=== PATIENT | female | born 1960 | race Hispanic/Latino ===

== ENCOUNTER 2020-06-22 12:28 | Emergency (ER) | payer OTHER ==
--- NOTE | 2020-06-22 15:40 | ER ---
Nurse's Notes [facility] Name: Blanca Awna Age: 59 yrs Sex: Female : 1960 Arrival Date: 06/22/2020 Time: 12:36 Bed Waiting Private MD: Diagnosis: Presentation: 06/22 13:00 Chief complaint: Patient states: 1. Chronic low back pain. 2. Abdominal pain with N/V ll1 for 4 days. No fever. Coronavirus screen: Client denies travel out of the [place] in the last 14 days. At this time, the client does not indicate any symptoms associated with coronavirus-19. Ebola Screen: Patient denies travel to an Ebola-affected area in the 21 days before illness onset. Initial Sepsis Screen: Does the patient meet any 2 criteria? HR > 90 bpm. No. Patient's initial sepsis screen is negative. Does the patient have a suspected source of infection? Yes: Acute abdominal pain. Risk Assessment: Do you want to hurt yourself or someone else? Patient reports no desire to harm self or others. Onset of symptoms was June 18, 2020. 13:00 Method Of Arrival: Ambulatory ll1 13:00 Acuity: MARLI 3 ll1 Historical: - Allergies: 13:02 No Known Allergies; ll1 - PMHx: 13:02 Diabetes - IDDM; Hyperlipidemia; Hypertension; ll1 - PSHx: 13:02 ; ll1 - Immunization history:: Flu vaccine is up to date. - Social history:: Smoking status: Patient reports the use of cigarette tobacco products, smokes one-half pack cigarettes per day. Vital Signs: 13:00 BP 127 / 82; Pulse 111; Resp 17; Pulse Ox 99% ; Weight 52.16 kg; Height 5 ft. 2 in. ll1 (157.48 cm); Pain 10/10; 13:03 Temp 97.9; ll1 13:00 Body Mass Index 21.03 (52.16 kg, 157.48 cm) ll1 ED Course: 12:36 Patient arrived in ED. ds1 13:01 Triage completed. ll1 13:02 Arm band placed on. ll1 Administered Medications: No medications were administered Outcome: 15:40 Patient left the ED. ll1 Signatures: Maggie Pardo ds1 Cliff, Lynsay, RN RN ll1
[2020-06-22 15:44] VITALS: BP 127/82; O2SAT 99
[2020-06-22 15:45] VITALS: TEMP 97.9
== END 2020-06-22 15:40 | disposition left against medical advice (07) ==
LOC: ER 12:28
DX: Z02.9 Encounter for administrative examinations, unspecified (principal)
CPT/HCPCS: 99281

== ENCOUNTER 2020-06-27 08:08 | Emergency (ER) | payer OTHER ==
[2020-06-27 08:53] LABS: Absolute Lymphocytes (CBC) 1.8 K/uL (0.7-4.9); Basophils % 0.5 % (0-1.3); Hematocrit 35.7 % (36.0-45.0); RBC Red Blood Cell Count 4.24 M/uL (3.86-4.86)
[2020-06-27] MEDS ORDERED: MEPERIDINE HCL 25 MG/ML SYR ONE (09:06)
[2020-06-27 09:09] LABS: ALT/SGPT 19 U/L (12-78); AST/SGOT 12 U/L (15-37); Albumin 3.2 g/dL (3.4-5.0); Alkaline Phosphatase 140 U/L (45-117); BUN Blood Urea Nitrogen 21 mg/dL (7-18); Bicarbonate 30 mmol/L (21-32); Bilirubin Direct < 0.1 mg/dL (0-0.2); Bilirubin Total 0.2 mg/dL (0.2-1.0); Glucose Level 216 mg/dL (74-106); Lipase 148 U/L (73-393); Potassium 4.2 mmol/L (3.5-5.1); Protein, Total 7.3 g/dL (6.4-8.2); Sodium Level 138 mmol/L (136-145)
[2020-06-27 09:10] LABS: Urine RBC NONE SEEN /HPF (NONE SEEN)
[2020-06-27 09:11] LABS: Urine Bacteria <20 /HPF (<20)
[2020-06-27 09:14] LABS: Urine Blood NEGATIVE (Negative); Urine Protein 1+ (NEG); Urine Specific Gravity 1.025 (1.005-1.030)
--- NOTE | 2020-06-27 09:14 | RAD REPORT ---
EXAM DESCRIPTION: CT - Stone Protocol - 06/27/2020 8:59 am CLINICAL HISTORY: Abdominal pain. COMPARISON: None. TECHNIQUE: Computed axial tomography of the abdomen pelvis was obtained without oral or IV contrast. Lack of IV and oral contrast limits evaluation of solid organs, bowel, and vessels. Coronal reformat kim images were obtained and reviewed. All CT scans are performed using dose optimization technique as appropriate and may include automated exposure control or mA/KV adjustment according to patient size. FINDINGS: A renal calculus is not seen. An ureteral calculus is not noted. A bladder calculus is not present. No hydronephrosis. The bladder wall appears mildly thickened. Small right renal cysts The liver, spleen, pancreas and adrenals appear grossly normal There is no evidence of diverticulitis. Mild anterior subluxation L4 on L5. 18 x 12 millimeter peripherally calcified splenic arterial aneurysm IMPRESSION: Negative for a genitourinary calculus Mild bladder wall thickening may indicate cystitis
--- NOTE | 2020-06-27 09:28 | ER ---
Nurse's Notes [facility] Name: Blanca Awan Age: 59 yrs Sex: Female : 1960 Arrival Date: 06/27/2020 Time: 08:11 Bed 19 Private MD: Adri Bueno Diagnosis: Urinary tract infection, site not specified;Low back pain Presentation: 06/27 08:20 Chief complaint: Patient states: low back pain x 1 month. Reports having multiple falls sv over the month and was dx with UTI and is now on abx. Pain has not decreased. Coronavirus screen: Client denies travel out of the [place] in the last 14 days. At this time, the client does not indicate any symptoms associated with coronavirus-19. Client reports previous positive COVID test result. Date of collection: May 29, 2020. Ebola Screen: No symptoms or risks identified at this time. Risk Assessment: Do you want to hurt yourself or someone else? Patient reports no desire to harm self or others. Onset of symptoms was May 2020. 08:20 Method Of Arrival: Wheelchair sv 08:20 Acuity: MARLI 3 sv 09:50 Initial Sepsis Screen: Does the patient meet any 2 criteria? No. Patient's initial bw sepsis screen is negative. Does the patient have a suspected source of infection? No. Patient's initial sepsis screen is negative. Historical: - Allergies: 08:22 No Known Allergies; sv - PMHx: 08:22 Diabetes - IDDM; Hyperlipidemia; Hypertension; sv - PSHx: 08:22 ; sv - Immunization history:: Adult Immunizations up to date. - Family history:: not pertinent. - Social history:: Smoking status: Patient reports the use of cigarette tobacco products, smokes one pack cigarettes per day. - Hospitalizations: : No recent hospitalization is reported. Screenin:52 Abuse screen: Denies threats or abuse. Nutritional screening: No deficits noted. bw Tuberculosis screening: No symptoms or risk factors identified. Fall Risk Fall in past 12 months (25 points). No secondary diagnosis (0 pts). IV access (20 points). Ambulatory Aid- None/Bed Rest/Nurse Assist (0 pts). Gait- Weak (10 pts.). Mental Status- Oriented to own ability (0 pts). Total Velarde Fall Scale indicates Low Risk Score (25-44 pts). Fall prevention measures have been instituted. Side Rails Up X 2 Placed close to Nursing Station. Assessment: 08:52 General: Appears in no apparent distress. uncomfortable, Behavior is calm, cooperative, bw appropriate for age. Pain: Complains of pain in lumbar area, sacrum, left low back and right low back. Neuro: Level of Consciousness is awake, alert, obeys commands, Oriented to person, place, time, situation, Meteorological Equipment Repairer are equal bilaterally. Cardiovascular: Denies chest pain, shortness of breath, pt hypertensive at this time. . Respiratory: No deficits noted. GI: No signs and/or symptoms were reported involving the gastrointestinal system. : No signs and/or symptoms were reported regarding the genitourinary system. EENT: No signs and/or symptoms were reported regarding the EENT system. Derm: No signs and/or symptoms reported regarding the dermatologic system. Musculoskeletal: Reports pain in lower back. Injury Description: fall at home, unable to describe when or how injury occurred. 09:29 Reassessment: Patient appears in no apparent distress at this time. Patient and/or bw family updated on plan of care and expected duration. Pain level reassessed. Patient is alert, oriented x 3, equal unlabored respirations, skin warm/dry/pink. MD at bedside for pt POC. Vital Signs: 08:20 Temp 98.1; Weight 52.16 kg; Height 5 ft. 2 in. (157.48 cm); Pain 10/10; sv 08:30 BP 172 / 78; Pulse 79; Resp 20; Temp 97.9(O); Pulse Ox 95% on R/A; Weight 56.7 kg; bw Height 5 ft. 2 in. (157.48 cm); 08:30 Pain 9/10; bw 09:28 BP 173 / 82; Pulse 74; Resp 18; Pulse Ox 96% on R/A; bw 08:30 Body Mass Index 22.86 (56.70 kg, 157.48 cm) ED Course: 08:11 Patient arrived in ED. mr 08:12 dAri Bueno is Private Physician. mr 08:14 Alex Yen MD is Attending Physician. rn 08:15 Terri Marcial RN is Primary Nurse. bw 08:22 Triage completed. sv 08:22 Arm band placed on. sv 08:52 Patient has correct armband on for positive identification. Bed in low position. Call bw light in reach. Side rails up X2. Pulse ox on. NIBP on. Warm blanket given. 08:52 No provider procedures requiring assistance completed. Inserted saline lock: 20 gauge bw in left antecubital area, using aseptic technique. 08:59 CT Stone Protocol In Process Unspecified. EDMS 09:28 IV discontinued. bw Administered Medications: 08:51 Drug: Demerol 25 mg Route: IVP; Site: left antecubital; bw 09:29 Follow up: Response: No adverse reaction bw Outcome: 09:27 Discharge ordered by . rn 09:49 Discharged to home via wheelchair. 09:49 Condition: stable 09:49 Discharge instructions given to patient, Instructed on discharge instructions. 09:50 Patient left the ED. Signatures: Dispatcher [employer] Adri Worley RN RN sv Rivera, Mary mr Alex Yen MD MD rn Webb, Bethany, RN RN
--- NOTE | 2020-06-27 09:28 | EDPHYS ---
Physician Documentation [facility] Name: Blanca Awan Age: 59 yrs Sex: Female : 1960 Arrival Date: 06/27/2020 Time: 08:11 Bed 19 Private MD: Adri Bueno ED Physician Alex Yen HPI: 06/27 08:26 This 59 yrs old Female presents to ER via Wheelchair with complaints of Back rn Pain. 08:26 The symptoms are located in the that is acute, with no known mechanism of injury, low rn back. Onset: The symptoms/episode began/occurred 3 week(s) ago. The pain radiates to the abdomen. Associated signs and symptoms: Pertinent positives: abdominal pain, constipation, Pertinent negatives: fever, hematuria, incontinence, nausea, numbness, tingling, urinary retention. Modifying factors: The patient symptoms are alleviated by OTC meds, remaining still, rest, the patient symptoms are aggravated by any movement. Severity of symptoms: At their worst the symptoms were moderate, in the emergency department the symptoms are unchanged. The patient has experienced similar episodes in the past. The patient has been recently seen by a physician:. Reports lower back pain for about 3 weeks, worse with palpation and movement, reports several falls over last few months, last fall 3 weeks ago. Seen by pcp recently, given abx for UTI, and muscle relaxer. Pt states not really helping. No fever. NO dysuria. No hx of kidney stones. + known lower back problems. . Historical: - Allergies: 08:22 No Known Allergies; sv - PMHx: 08:22 Diabetes - IDDM; Hyperlipidemia; Hypertension; sv - PSHx: 08:22 ; sv - Immunization history:: Adult Immunizations up to date. - Family history:: not pertinent. - Social history:: Smoking status: Patient reports the use of cigarette tobacco products, smokes one pack cigarettes per day. - Hospitalizations: : No recent hospitalization is reported. ROS: 08:26 Constitutional: Negative for fever, chills, and weight loss, Eyes: Negative for injury, rn pain, redness, and discharge, Neck: Negative for injury, pain, and swelling, Cardiovascular: Negative for chest pain, palpitations, and edema, Respiratory: Negative for shortness of breath, cough, wheezing, and pleuritic chest pain, Abdomen/GI: + lower abd pain Back: + lower back pain : Negative for injury, bleeding, discharge, and swelling, MS/Extremity: Negative for injury and deformity, Skin: Negative for injury, rash, and discoloration, Neuro: Negative for headache, weakness, numbness, tingling, and seizure. 08:26 All other systems are negative. Exam: 08:26 Constitutional: This is a well developed, well nourished patient who is awake, alert, shoe turner but appears uncomfortable Head/Face: Normocephalic, atraumatic. Eyes: Periorbital areas with no swelling, redness, or edema. Cardiovascular: Regular rate and rhythm. No pulse deficits. Respiratory: No increased work of breathing, no retractions or nasal flaring. Abdomen/GI: soft, mild RLQ tenderness. Back: No spinal tenderness. No costovertebral tenderness. Full range of motion. Skin: Warm, dry MS/ Extremity: Pulses equal, no cyanosis. Neurovascular intact. Full, normal range of motion. Equal circumference. Neuro: Awake and alert, GCS 15, oriented to person, place, time, and situation. Cranial nerves II-XII grossly intact. Motor strength 5/5 in all extremities. Sensory grossly intact. Cerebellar exam normal. Normal gait. Vital Signs: 08:20 Temp 98.1; Weight 52.16 kg; Height 5 ft. 2 in. (157.48 cm); Pain 10/10; sv 08:30 BP 172 / 78; Pulse 79; Resp 20; Temp 97.9(O); Pulse Ox 95% on R/A; Weight 56.7 kg; bw Height 5 ft. 2 in. (157.48 cm); 08:30 Pain 9/10; bw 09:28 BP 173 / 82; Pulse 74; Resp 18; Pulse Ox 96% on R/A; bw 08:30 Body Mass Index 22.86 (56.70 kg, 157.48 cm) bw MDM: 08:14 Patient medically screened. rn 09:24 Differential diagnosis: arthritis, chronic back pain, Osteoarthritis Pyelonephritis rn Ureterolithiasis UTI. Data reviewed: vital signs, nurses notes, lab test result(s), radiologic studies, CT scan, and as a result, I will discharge patient. Counseling: I had a detailed discussion with the patient and/or guardian regarding: the historical points, exam findings, and any diagnostic results supporting the discharge/admit diagnosis, lab results, radiology results, the need for outpatient follow up, to return to the emergency department if symptoms worsen or persist or if there are any questions or concerns that arise at home. Response to treatment: the patient's symptoms have mildly improved after treatment, and as a result, I will discharge patient. Special discussion: I discussed with the patient/guardian in detail that at this point there is no indication for admission to the hospital. It is understood, however, that if the symptoms persist or worsen the patient needs to return immediately for re-evaluation. ED course: NO acute findings to explain back pain, possible persistent cystitis on CT, + splenic artery aneurysm but calcified, indicating old and not acute findings. Back pain likely combination of spinal/nerve/muscle with her UTI, which she is on abx for. No signs of pyelo. Will dc home with continuation of current therapy. . 06/27 08:25 Order name: Basic Metabolic Panel; Complete Time: 09:15 rn 06/27 08:25 Order name: CBC with Diff; Complete Time: 09:15 rn 06/27 08:25 Order name: Hepatic Function; Complete Time: 09:15 rn 06/27 08:25 Order name: Lipase; Complete Time: 09:15 rn 06/27 08:25 Order name: Urine Microscopic Only; Complete Time: 09:15 rn 06/27 09:11 Order name: Urine Dipstick--Ancillary (enter results) 06/27 08:25 Order name: IV Saline Lock; Complete Time: 08:52 rn 06/27 08:25 Order name: Labs collected and sent; Complete Time: 08:52 rn 06/27 08:25 Order name: CT Stone Protocol; Complete Time: 09:15 rn 06/27 08:25 Order name: Urine Dipstick-Ancillary (obtain specimen); Complete Time: 08:51 rn Administered Medications: 08:51 Drug: Demerol 25 mg Route: IVP; Site: left antecubital; bw 09:29 Follow up: Response: No adverse reaction bw Disposition: 06/27/20 09:27 Discharged to Home. Impression: Urinary tract infection, site not specified, Low back pain. - Condition is Stable. - Discharge Instructions: Back Pain, Adult, Urinary Tract Infection, Adult. - Medication Reconciliation Form, Thank You Letter, Antibiotic Education, Prescription Opioid Use form. - Follow up: Private Physician; When: As needed; Reason: Recheck today's complaints, Re-evaluation by your physician. - Problem is an ongoing problem. - Symptoms have improved. Signatures: Dispatcher [employer] Adri Worley RN Alex Thompson MD MD rn Marcial, DARSHAN Murray RN bw Corrections: (The following items were deleted from the chart) 09:50 09:27 06/27/2020 09:27 Discharged to Home. Impression: Urinary tract infection, site bw not specified; Low back pain. Condition is Stable. Forms are Medication Reconciliation Form, Thank You Letter, Antibiotic Education, Prescription Opioid Use. Follow up: Private Physician; When: As needed; Reason: Recheck today's complaints, Re-evaluation by your physician. Problem is an ongoing problem. Symptoms have improved. rn
[2020-06-27 09:56] VITALS: TEMP 97.9
[2020-06-27 09:57] VITALS: BP 173/82; O2SAT 96
[2020-06-27 11:16] LABS: Urine Glucose 2 (Negative)
== END 2020-06-27 09:50 | disposition home or self-care (01) ==
LOC: ER 08:08
DX: N39.0 Urinary tract infection, site not specified (principal); F17.210 Nicotine dependence, cigarettes, uncomplicated; I10 Essential (primary) hypertension
CPT/HCPCS: 85025; 80048; 36415; 80076; 83690; 76377; 74176; 96374; 99284; J2175; 81003; 81015

== ENCOUNTER 2020-09-15 18:21 | Emergency (ER) | payer OTHER ==
[2020-09-15] MEDS ORDERED: ACETAMINOPHEN 500 MG TAB ONE (19:58)
[2020-09-15] MEDS ORDERED: IBUPROFEN 400 MG TAB ONE (19:58)
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
--- NOTE | 2020-09-15 21:09 | RAD REPORT ---
EXAM DESCRIPTION: RAD - Shoulder Left 2 View - 09/15/2020 9:00 pm CLINICAL HISTORY: PAIN COMPARISON: No comparisons FINDINGS: The bones are diffusely demineralized. No acute fracture or dislocation seen.
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
--- NOTE | 2020-09-15 21:12 | RAD REPORT ---
EXAM DESCRIPTION: RAD - Hip Left 2 View - 09/15/2020 9:00 pm CLINICAL HISTORY: PAIN COMPARISON: No comparisons FINDINGS: Mild arthritic changes are present involving the left hip. No fracture, dislocation or AVN pattern.
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
== END 2020-09-15 22:21 | disposition home or self-care (01) ==
LOC: ER 18:21
DX: M54.2 Cervicalgia (principal); M25.561 Pain in right knee; M25.512 Pain in left shoulder; M25.552 Pain in left hip; V49.49XA Driver injured in collision with other motor vehicles in traffic accident, initial encounter; I10 Essential (primary) hypertension; F17.210 Nicotine dependence, cigarettes, uncomplicated
CPT/HCPCS: 70450; 70486; 72125; 72170; 76377